=== PATIENT | female | born 1965 | race Caucasian/White ===

== ENCOUNTER 2016-07-25 22:35 | Emergency (ER) | payer MEDICARE, OTHER ==
--- NOTE | ~2016-07-25 | CR210 ---
[facility]. [facility] A Service of [facility] & [facility] RADIOLOGY TEXT RESULTS PATIENT: JESSE MONTES DE OCA LOCATION: SED : 67 UNIT #: [id number] AGE: [address]: Ronnell Hyde SEX: F ORDER DR: [id number] [place] [id number] E MR#: [id number] Acc #: [id number] NAME: JESSE MONTES DE OCA : 1965 SEX: F STUDY DATE/TIME: 07/25/2016 22:44 UNIT: SED ROOM: STUDY DESCRIPTION: CR Ribs Uni 2 View W PA Ch Lt Attending Physician: Ronnell Hyde P.A.-C. Ordering Physician: Ronnell Hyde P.A.-C. Primary Care Physician: Rebel LucasPMegan MEDICAL IMAGING REPORT This report is preliminary unless electronic signature is present. EXAM Left ribs 4 views HISTORY Left chest pain since yesterday after fall and rib injury. FINDINGS 4 views of the left ribs demonstrate no fracture. No pneumothorax or pleural effusion. Moderately dense infiltrate or atelectasis in the retrocardiac left lower lobe and mild linear atelectasis or scarring in the lateral left midlung. No pleural effusion. IMPRESSION 1. No left rib fracture is identified. 2. Moderately dense infiltrate or atelectasis in the retrocardiac left lower lobe and mild linear atelectasis or scarring in the lateral left midlung. 1. Dictated by... Stanley Mccord M.D. THIS IS AN ELECTRONICALLY VERIFIED REPORT Stanley Mccord M.D. at 07/26/2016 2:21 PM ANABEL/derrell TD: 07/26/2016 06:49 JOB #: [id number] MEDICAL IMAGING REPORT
[~2016-07-25 22:35] MED LIST: ACCOLATE20 MG; ACETAMINOPHEN PO; ADVAIR 100-501 EAC1 IH; ADVAIR 100-501 EAC1 INH; ADVAIR 250-501 EAC1; ADVAIR 500-501 EACH IH; ADVAIR 5001 DISK W/D; ADVAIR 5001 DISK W/D PO; ALBUTEROL 0.5ML; ALBUTEROL17 GM; ALBUTEROL17 GM HHN; ALBUTEROL17 GM INH; ALPRAZOLAM; ALPRAZOLAM PO; ALPRAZOLAM1 MG PO; AMBIEN PO; AMBIEN10 MG PO; AMITIZA24 MCG PO; AMITIZA8 MCG PO; AMITRIPTYLINE H50 MG PO; AMOXIL500 MG PO; ASPIRIN PO; AURALGAN EAR DR14 ML OT; BACTROBAN22 GM TOP; BIAXIN PO; CHANTIX; CIPRO PO; CLEOCIN150 M2 PO; CORTISPORI10 ML OTIC AD; COUMADIN; COUMADIN PO; COUMADIN10 MG PO; CYMBALTA; CYMBALTA PO; DEPAKOTE; DEPAKOTE ER PO; DEPAKOTE PO; DIAZEPAM; DIAZEPAM PO; DILAUDID PO; DILAUDID2 MG PO; DILAUDID4 MG PO; DOXYCYCLINE MO100 MG PO; DOXYCYCLINE PO; DOXYCYCLINE150 MG PO; EFFER-K 10 MEQ10 MEQ PO; ENDOCET 5-3251 EACH PO; ENOXAPARIN40 MG/0.4 SQ; ERY-TAB500 MG PO; ESTRACE; FAMOTIDINE PO; FLAGYL PO; FLEXERIL PO; FLOMAX0.4 M1 DOB; FLOMAX0.4 M1 PO; FUROSEMIDE40 MG PO; GLUCOPHAGE XR750 MG PO; HYDROCODONE-APA1 T30 PO; HYDROCODONE-APA1 T33; HYDROCODONE/APA1 T15 PO; HYDROMET SYRUP480 ML PO; IMITREX; IMITREX50 MG PO; KCL PO; KEFLEX; KEFLEX500 MG PO; KEPPRA500 M1 PO; LEVAQUIN PO; LEXAPRO; LEXAPRO PO; LODINE PO; LORTAB 10-5001 EACH; LORTAB 10-5001 EACH PO; LORTAB 10/500 T1 TAB PO; LORTAB 101 TAB 10/5 PO; LORTAB 2.5/5001 TAB PO; LORTAB 5/500 TA1 TA1 PO; LORTAB 7.5-5001 TAB PO; LOVENOX SUBQ; LOVENOX120 MG/0.8 INJ; LOVENOX40 MG/0.4 INJ; LYRICA PO; LYRICA100 MG PO; MACROBID 100 M100 MG PO; MACROBID100 MG PO; MEDROL PO; METFORMIN HCL750 MG PO; METFORMIN PO; MORGIDOX100 MG PO; NEURONTIN PO; NEXIUM PO; NITROGYLCERIN SUBLINGUAL; NITROSTAT0.4 MG SL; OXYCODON HCL-1 UDTA1 PO; OXYCODON HCL-AP1 TA2 PO; OXYCODONE HCL10 MG PO; OXYCONTIN PO; PAMELOR10 MG PO; PERCOCET PO; PERCOCET5/325 PO; PHENERGAN PO; PHENERGAN W/CO120 ML PO; PHENERGAN25 MG PO; PHENTERMINE H37.5 M1 PO; PREDNISONE; PREDNISONE PO; PREVACID; PRILOSEC PO; PROAIR HFA8.5 GM IH; PROAIR HFA8.5 GM IN; PROAIR HFA8.5 GM INH; PROSED DS PO; PYRIDIUM PO; REGLAN PO; SINGULAIR; SINGULAIR PO; SKELAXIN PO; SYMBICORT; TEMAZEPAM; TEMAZEPAM PO; TESSALON200 MG PO; TOPAMAX; TOPAMAX PO; TOPAMAX50 MG DOB; TOPAMAX50 MG PO; TRIMPEX100 MG PO; TYLENOL #3 PO; TYLENOL325 M1 PO; TYLOX 5-500 CA1 EACH PO; TYLOX1 CAP 5/50 PO; ULTRAM PO; VALIUM10 MG PO; VICODIN; VICODIN 5/1 TAB 5/50 PO; VICODIN 5/500 T1 TAB PO; VICODIN PO; VIMPAT50 MG PO; VISTARIL PO; WARFARIN SODIUM10 M1 PO; WARFARIN SODIUM10 MG PO; WELLBUTRIN; WELLBUTRIN SR150 MG PO; WELLBUTRIN XL PO; XANAX1 MG PO; XARELTO20 MG PO; XOPENEX1.25 MG/0.; XOPENEX1.25 MG/0. NEB; ZANAFLEX4 M1 PO; ZITHROMAX PO; ZOCOR20 MG PO; ZYRTEC PO; ZYVOX600 MG PO; [UNRECOGNIZED DRUG - OTHER]
[2016-09-19] MEDS ORDERED: KCL (00:27)
[2016-09-19] MEDS ORDERED: COZAAR (00:28)
[2016-09-19] MEDS ORDERED: LIPITOR (00:28)
[2017-02-10] MEDS ORDERED: LISINOPRIL (02:19)
== END 2016-07-25 23:37 | disposition home or self-care (01) ==
LOC: SED 22:35
DX: S20.212A Contusion of left front wall of thorax, initial encounter (principal); J18.9 Pneumonia, unspecified organism; F17.210 Nicotine dependence, cigarettes, uncomplicated; W08.XXXA Fall from other furniture, initial encounter; Y92.009 Unspecified place in unspecified non-institutional (private) residence as the place of occurrence of the external cause
CPT/HCPCS: 71100; 99283

== ENCOUNTER 2016-07-30 01:39 | Emergency (ER) | payer MEDICARE, OTHER ==
--- NOTE | ~2016-07-30 | CR63 ---
[facility]. [facility] A Service of [facility] & [facility] RADIOLOGY TEXT RESULTS PATIENT: JESSE MONTES DE OCA LOCATION: SED : 67 UNIT #: [id number] AGE: [address]: Marcello Costa MD SEX: F ORDER DR: [id number] [place] [id number] E MR#: [id number] Acc #: [id number] NAME: JESSE MONTES DE OCA : 1965 SEX: F STUDY DATE/TIME: 07/30/2016 1:50 UNIT: SED ROOM: STUDY DESCRIPTION: CR Chest 2 View Attending Physician: Marcello Costa M.D. Ordering Physician: Marcello Costa M.D. Primary Care Physician: Cheryl Rodriges A.P.R.N. MEDICAL IMAGING REPORT This report is preliminary unless electronic signature is present. EXAM PA and lateral chest. date 07/30/2016 HISTORY Body aches, fatigue, cough and shortness breath, onset symptoms approximate 7 days ago. COMPARISON AP portable chest 04/12/2016 FINDINGS Questionable mild left perihilar infiltrate. No dense lung consolidations are identified. No pleural effusion or pneumothorax. Heart size is within normal limits. IMPRESSION Questionable mild left perihilar infiltrate. Dictated by... Clarice Roth M.D. THIS IS AN ELECTRONICALLY VERIFIED REPORT Clarice Roth M.D. at 07/30/2016 10:01 PM CEDRIC/derrell TD: 07/30/2016 07:55 JOB #: [id number] MEDICAL IMAGING REPORT
[2016-09-19] MEDS ORDERED: KCL (00:27)
[2016-09-19] MEDS ORDERED: COZAAR (00:28)
[2016-09-19] MEDS ORDERED: LIPITOR (00:28)
[2017-02-10] MEDS ORDERED: LISINOPRIL (02:19)
== END 2016-07-30 02:42 | disposition home or self-care (01) ==
LOC: SED 01:39
DX: J18.9 Pneumonia, unspecified organism (principal); F17.210 Nicotine dependence, cigarettes, uncomplicated; Z88.0 Allergy status to penicillin; Z88.1 Allergy status to other antibiotic agents; Z88.2 Allergy status to sulfonamides; Z88.8 Allergy status to other drugs, medicaments and biological substances
CPT/HCPCS: 71020; 99283

== ENCOUNTER 2016-08-13 23:25 | Emergency (ER) | payer MEDICARE, OTHER ==
--- NOTE | ~2016-08-13 | CR63 ---
[facility] A Service of [facility] & [facility] RADIOLOGY TEXT RESULTS PATIENT: JESSE MONTES DE OCA LOCATION: [facility] : 67 UNIT #: [id number] AGE: [address]: Horacio Granados MD SEX: F ORDER DR: [id number] [facility] [address] [place], [place] [address] [id number] E MR#: [id number] Acc #: [id number] NAME: JESSE MONTES DE OCA : 1965 SEX: F STUDY DATE/TIME: 08/13/2016 21:18 UNIT: [facility] ROOM: STUDY DESCRIPTION: CR Chest 2 View Attending Physician: Horacio Granados M.D. Ordering Physician: Horacio Granados M.D. Primary Care Physician: Cheryl Rodriges A.P.R.N. MEDICAL IMAGING REPORT This report is preliminary unless electronic signature is present EXAM Chest 2 views 08/13/2016 INDICATION 50-year-old female with shortness of air. Left-sided chest pain since yesterday. Cervical cancer. TECHNIQUE 2 views of the chest compared with 07/30/2016. FINDINGS Cardiac silhouette is borderline enlarged and stable. The vascularity is normal. There are calcified granulomas. There has been interval resolution of faint infiltrate in the midlung zone on the left. No pneumothorax. IMPRESSION Persistent cardiomegaly. Interval resolution of the left perihilar infiltrate. No new opacities. Dictated by... Dannie Cyr M.D. THIS IS AN ELECTRONICALLY VERIFIED REPORT Dannie Cyr M.D. at 08/14/2016 10:02 PM THANH/rosamaria TD: 08/14/2016 08:50 JOB #: [id number] MEDICAL IMAGING REPORT Page 1 of 1 COPY
--- NOTE | ~2016-08-13 | EKG ---
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
[2016-08-13 21:17] LABS: BASOPHIL# 0.1 X10e3 (0-0.3); BASOPHIL% 1.1 % (0-2.5); EOSINOPHIL# 0.1 X10e3 (0-0.7); EOSINOPHIL% 1.5 % (0.0-7.0); HEMATOCRIT 35.8 % (35.0-45.0); HEMOGLOBIN 11.5 gm/dL (12.0-16.0); LYMPHOCYTE# 3.5 X10e3 (1.0-3.5); LYMPHOCYTE% 39.8 % (17.0-45.0); MEAN CELL VOLUME 83.8 FL (83-96); MEAN CORPUSCULAR HEMOGLOBIN 26.8 PG (28-34); MEAN PLATELET VOLUME 7.7 FL (6.5-11.5); MONOCYTE# 0.5 X10e3 (0-1.0); MONOCYTE% 6.2 % (3.0-12.0); NEUTROPHIL# 4.5 X10e3 (1.5-7.1); NEUTROPHIL% 51.4 % (40-75); PLATELET COUNT 377 X10e3 (140-420); RED BLOOD COUNT 4.27 X10e (3.90-5.30); RED CELL DISTRIBUTION WIDTH 16.2 % (11.0-15.5); WHITE BLOOD COUNT 8.8 X10e3 (4.0-10.5)
[2016-08-13 21:19] LABS: DIFF IND NO
[2016-08-13 21:28] LABS: POC - CKMB <1.0 ng/mL (0.0-7.9); POC - TROPONIN <0.05 ng/mL (<=0.05)
[2016-08-13 21:33] LABS: INR 1.1; PARTIAL THROMBOPLASTIN TIME 32.2 SECONDS (23.5-31.3)
[2016-08-13 21:52] LABS: ALBUMIN SERUM 4.5 g/dL (3.5-5.0); BILIRUBIN, DIRECT 0.1 mg/dL (0.0-0.2); BILIRUBIN,INDIRECT 0.2 mg/dL (0.0-0.9); BILIRUBIN,TOTAL 0.3 mg/dL (0.2-2.0); BUN/CREATININE RATIO 15.71; CALCIUM SERUM 9.8 mg/dL (8.4-10.2); CREATININE SERUM 0.7 mg/dL (0.6-1.4); GLOM FILT RATE Estimated 101.7 mL/min (>60); POTASSIUM 3.4 mmol/L (3.5-5.1); PROTEIN TOTAL SERUM 8.1 g/dL (6.0-8.3)
[2016-08-13 22:56] LABS: POC - CKMB <1.0 ng/mL (0.0-7.9); POC - TROPONIN <0.05 ng/mL (<=0.05)
[2016-09-19] MEDS ORDERED: KCL (00:27)
[2016-09-19] MEDS ORDERED: COZAAR (00:28)
[2016-09-19] MEDS ORDERED: LIPITOR (00:28)
[2017-02-10] MEDS ORDERED: LISINOPRIL (02:19)
== END 2016-08-13 23:33 | disposition home or self-care (01) ==
LOC: CED 23:25
PROVIDERS: Emergency Medicine
DX: R07.81 Pleurodynia (principal); R06.02 Shortness of breath; J44.9 Chronic obstructive pulmonary disease, unspecified; F41.9 Anxiety disorder, unspecified; F31.9 Bipolar disorder, unspecified; K31.84 Gastroparesis; F17.200 Nicotine dependence, unspecified, uncomplicated; Z86.718 Personal history of other venous thrombosis and embolism
CPT/HCPCS: 36415; 71020; 80048; 80076; 82553; 84484; 85025; 85379; 85610; 85730; 93005; 94640; 99284; J1170; J2930

== ENCOUNTER 2016-09-19 01:01 | Emergency (ER) | payer MEDICARE, OTHER ==
[~2016-09-19 01:01] MED LIST changes: +COZAAR; +KCL; +LIPITOR
[2016-09-19 01:31] LABS: BASOPHIL# 0.1 X10e3 (0-0.3); BASOPHIL% 1.4 % (0-2.5); EOSINOPHIL# 0.1 X10e3 (0-0.7); HEMATOCRIT 37.3 % (35.0-45.0); LYMPHOCYTE# 3.4 X10e3 (1.0-3.5); LYMPHOCYTE% 34.4 % (17.0-45.0); MEAN CORPUSCULAR HGB CONC 32.2 g/dL (30-36); MEAN PLATELET VOLUME 8.1 FL (6.5-11.5); MONOCYTE# 0.7 X10e3 (0-1.0); MONOCYTE% 6.7 % (3.0-12.0); NEUTROPHIL# 5.6 X10e3 (1.5-7.1); NEUTROPHIL% 56.5 % (40-75); PLATELET COUNT 318 X10e3 (140-420); RED BLOOD COUNT 4.45 X10e (3.90-5.30); RED CELL DISTRIBUTION WIDTH 16.1 % (11.0-15.5); WHITE BLOOD COUNT 9.9 X10e3 (4.0-10.5)
[2016-09-19 01:33] LABS: DIFF IND NO
[2016-09-19 01:53] LABS: ALBUMIN SERUM 4.1 g/dL (3.5-5.0); BILIRUBIN,TOTAL 0.3 mg/dL (0.2-2.0); CALCIUM SERUM 9.1 mg/dL (8.4-10.2); CREATININE SERUM 0.8 mg/dL (0.6-1.4); MAGNESIUM 2.1 mg/dL (1.6-3.0); POTASSIUM 3.3 mmol/L (3.5-5.1); PROTEIN TOTAL SERUM 7.2 g/dL (6.0-8.3)
[2017-02-10] MEDS ORDERED: LISINOPRIL (02:19)
== END 2016-09-19 02:23 | disposition home or self-care (01) ==
LOC: SED 01:01
PROVIDERS: Physician Assistant
DX: E87.6 Hypokalemia (principal); M79.1 Myalgia; E78.5 Hyperlipidemia, unspecified; J44.9 Chronic obstructive pulmonary disease, unspecified; G40.909 Epilepsy, unspecified, not intractable, without status epilepticus; I10 Essential (primary) hypertension; I25.2 Old myocardial infarction; F41.9 Anxiety disorder, unspecified; E11.43 Type 2 diabetes mellitus with diabetic autonomic (poly)neuropathy; K31.84 Gastroparesis; F17.200 Nicotine dependence, unspecified, uncomplicated; Z90.49 Acquired absence of other specified parts of digestive tract; Z98.51 Tubal ligation status
CPT/HCPCS: 36415; 80053; 83735; 85025; 99284

== ENCOUNTER 2016-10-28 21:31 | Emergency (ER) | payer MEDICARE, OTHER ==
--- NOTE | ~2016-10-28 | CR281 ---
[facility]. [facility] A Service of [facility] & [facility] RADIOLOGY TEXT RESULTS PATIENT: JESSE MONTES DE OCA LOCATION: SED : 67 UNIT #: [id number] AGE: [address]: PITO CASTRO SEX: F ORDER DR: [id number] [place] [id number] E MR#: [id number] Acc #: [id number] NAME: JESSE MONTES DE OCA : 1965 SEX: F STUDY DATE/TIME: 10/28/2016 22:27 UNIT: SED ROOM: STUDY DESCRIPTION: CR Wrist Min 3 View Lt Attending Physician: Pito Castro Ordering Physician: Pito Castro Primary Care Physician: Cheryl Rodriges A.P.R.N. MEDICAL IMAGING REPORT This report is preliminary unless electronic signature is present. EXAM Left wrist HISTORY Left wrist pain after a fall yesterday. FINDINGS Wrist evaluation in multiple projections shows normal mineralization of the bony structures about the wrist and satisfactory articular relationship of the radius and ulna to the proximal carpal row and of the distal carpal segments to the metacarpal bases. There is no indication of fracture or dislocation, and no soft tissue radiopaque foreign body is present. No congenital defects are apparent. IMPRESSION Normal wrist. Dictated by... Radhames Kong M.D. THIS IS AN ELECTRONICALLY VERIFIED REPORT Radhames Kong M.D. at 10/29/2016 12:39 PM Zaira TD: 10/29/2016 08:54 JOB #: [id number] MEDICAL IMAGING REPORT Page 1 of 1
--- NOTE | ~2016-10-28 | CR20 ---
[facility] A Service of [facility] & [facility] RADIOLOGY TEXT RESULTS PATIENT: JESSE MONTES DE OCA LOCATION: SED : 67 UNIT #: [id number] AGE: [address]: PITO CASTRO SEX: F ORDER DR: [id number] [address] [address] [id number] E MR#: [id number] Acc #: [id number] NAME: JESSE MONTES DE OCA : 1965 SEX: F STUDY DATE/TIME: 10/28/2016 22:27 UNIT: SED ROOM: STUDY DESCRIPTION: CR Ankle Min 3 Views Lt Attending Physician: Pito Castro Ordering Physician: Physician Non-Staff Primary Care Physician: Cheryl Rodriges A.P.R.N. MEDICAL IMAGING REPORT This report is preliminary unless electronic signature is present. EXAM Left ankle INDICATION Left ankle swelling after fall yesterday. FINDINGS Three views of the left ankle were obtained. There is soft tissue swelling both laterally and medially. The bones are normal. IMPRESSION Medial and lateral soft tissue swelling. Otherwise normal. Dictated by... Radhames Kong M.D. THIS IS AN ELECTRONICALLY VERIFIED REPORT Radhames Kong M.D. at 10/29/2016 12:39 PM KRYS/rosamaria TD: 10/29/2016 08:59 JOB #: [id number] MEDICAL IMAGING REPORT Page 1 of 1
--- NOTE | ~2016-10-28 | CR126 ---
[facility] A Service of [facility] RADIOLOGY TEXT RESULTS PATIENT: JESSE MONTES DE OCA LOCATION: SED : 67 UNIT #: [id number] AGE: [address]: PITO CASTRO SEX: F ORDER DR: [id number] [place] [id number] E MR#: [id number] Acc #: [id number] NAME: JESSE MONTES DE OCA : 1965 SEX: F STUDY DATE/TIME: 10/28/2016 22:27 UNIT: SED ROOM: STUDY DESCRIPTION: CR Foot Complete Min 3 View Lt Attending Physician: Pito Castro Ordering Physician: Staff Doctor Not On Primary Care Physician: Cheryl Rodriges A.P.R.N. MEDICAL IMAGING REPORT This report is preliminary unless electronic signature is present. EXAM Left foot 10/28/2016 HISTORY Left foot swelling and pain since yesterday after patient fell. COMPARISON 06/17/2015 FINDINGS The tarsal, metatarsal, and phalangeal elements are all anatomically normal in position and alignment. There are no articular defects. No fractures or radiopaque foreign bodies in the soft tissues are apparent. IMPRESSION Normal foot. Dictated by... Radhames Kong M.D. THIS IS AN ELECTRONICALLY VERIFIED REPORT Radhames Kong M.D. at 10/29/2016 12:39 PM KRYS/tate TD: 10/29/2016 09:23 JOB #: [id number] MEDICAL IMAGING REPORT [facility] A Service of [facility] RADIOLOGY TEXT RESULTS PATIENT: JESSE MONTES DE OCA LOCATION: SED : 67 UNIT #: [id number] AGE: [address]: PITO CASTRO SEX: F ORDER DR: Page 1 of 1
--- NOTE | ~2016-10-28 | CR141 ---
[facility]. [facility] A Service of [facility] & [facility] RADIOLOGY TEXT RESULTS PATIENT: JESSE MONTES DE OCA LOCATION: SED : 67 UNIT #: [id number] AGE: [address]: PITO CASTRO SEX: F ORDER DR: [id number] [place] [id number] E MR#: [id number] Acc #: [id number] NAME: JESSE MONTES DE OCA : 1965 SEX: F STUDY DATE/TIME: 10/28/2016 22:27 UNIT: SED ROOM: STUDY DESCRIPTION: CR Hand Min 3 Views Lt Attending Physician: Pito Castro Ordering Physician: Physician Non-Staff Primary Care Physician: Cheryl Rodriges A.P.R.N. MEDICAL IMAGING REPORT This report is preliminary unless electronic signature is present. EXAM Left hand INDICTIONS Pain after fall yesterday FINDINGS AP, lateral, and oblique projections of the hand show good mineralization with normal carpal, metacarpal, and phalangeal anatomy without indication of fracture, dislocation, or soft tissue radiopaque foreign body. IMPRESSION Normal hand. Dictated by... Radhames Kong M.D. THIS IS AN ELECTRONICALLY VERIFIED REPORT Radhames Kong M.D. at 10/29/2016 12:39 PM KRYS/belle TD: 10/29/2016 08:59 JOB #: [id number] MEDICAL IMAGING REPORT Page 1 of 1
[2017-02-10] MEDS ORDERED: LISINOPRIL (02:19)
== END 2016-10-28 23:31 | disposition home or self-care (01) ==
LOC: SED 21:31
DX: S90.32XA Contusion of left foot, initial encounter (principal); S90.02XA Contusion of left ankle, initial encounter; S60.212A Contusion of left wrist, initial encounter; S60.222A Contusion of left hand, initial encounter; F17.210 Nicotine dependence, cigarettes, uncomplicated; I25.2 Old myocardial infarction; J44.9 Chronic obstructive pulmonary disease, unspecified; Z79.891 Long term (current) use of opiate analgesic; Z79.84 Long term (current) use of oral hypoglycemic drugs; Z79.899 Other long term (current) drug therapy; Z88.0 Allergy status to penicillin; Z88.5 Allergy status to narcotic agent; Z88.1 Allergy status to other antibiotic agents; Z88.8 Allergy status to other drugs, medicaments and biological substances; Z91.040 Latex allergy status; W10.9XXA Fall (on) (from) unspecified stairs and steps, initial encounter; Y92.009 Unspecified place in unspecified non-institutional (private) residence as the place of occurrence of the external cause
CPT/HCPCS: 29125; 29515; 73110; 73130; 73610; 73630; 99283